=== PATIENT | female | born 1930 | race Caucasian/White ===

== ENCOUNTER 2016-10-27 17:10 | Inpatient (IN) | payer OTHER, MEDICAID, MEDICARE ==
[~2016-10-27] VITALS: Ht 170.2 cm; Wt 75.0 kg
[~2016-10-27 17:10] MED LIST: BIOT5000 PO; CALTTAB PO; CARV12.5 PO; CITA20 PO; CRUTCHES AXILLARY; DILT90TA PO; GABA300C3 PO; HYDR-2768 PO; MAGN500T4 PO; PERC5TAB12 PO; POTA99TA12 PO; RIVA20 PO; TAB-TAB PO; ULTR50TA PO; VITA20002 PO; VITA20004 PO; WAL-10TA2 PO
[2016-10-27 17:12] VITALS: BP 174/72; PULSE 77; RESP 18; TEMP 97.3; O2SAT 98
--- NOTE | 2016-10-27 22:34 | PD ---
HPI Chief Complaint: Hip Injury Time Seen by Provider: 22:21 Travel History International Travel<30 days: No Contact w/Intl Traveler<30days: No Traveled to known affect area: No History of Present Illness HPI 86yo F with PMH of HTN, osteoarthritis presents to the ED with c/o left hip fracture. Pt had seen her orthopedic surgeon Dr. Yee today and had a xray left hip that showed a fracture through femoral neck with superior displacement of proximal femur. As per pt, she was instructed to come to the ED. Pt has had left hip removal of hardware by Dr. Yee on 03/22/17 and has been having pain in left hip. Denies any fever, chest pain, sob, n/v, abdominal pain, focal weakness or numbness. PFSH Past Medical History Arthritis: Yes Asthma: No Atrial Fibrillation: Yes (AFLUTTER) Anxiety: Yes Depression: Yes Heart Rhythm Problems: Yes (A-FIB/rvr/flutter ) Cancer: No Cardiac Catheterization: Yes (x2 ablation) Cardiovascular Problems: Yes High Cholesterol: Yes Chest Pain: No Congestive Heart Failure: No COPD: No Diabetes: Yes (RESOLVED WITH WT LOSS) Patient Takes Glucophage: No Diminished Hearing: No Endocrine: Yes Gastrointestinal Disorders: Yes (IBS) Genitourinary: No Hepatitis: No Hiatal Hernia: No Hypertension: Yes Immune Disorder: No Kidney Stones: No Musculoskeletal: Yes (ARTHRITIS, OSTEOPOROSIS) Neurologic: No Psychiatric: No Reproductive: No Respiratory: No Sleep Apnea: No Thyroid Disease: No Tetanus Vaccination: Unknown Influenza Vaccination: Yes ?: Not Past Surgical History Abdominal Surgery: Yes (CHOLECYSECTOMY, APPENDECTOMY) AICD: No Appendectomy: Yes Arteriovenous Shunt: No Body Medical Devices: LEFT HIP HARDWARE Cardiac Surgery: No Cholecystectomy: Yes Ear Surgery: No Endocrine Surgery: No Eye Surgery: Yes (RIGHT CATARACT EXTRACT.) Genitourinary Surgery: No Gynecologic Surgery: Yes (TAHBSO) Hysterectomy: Yes Insulin Pump: No Joint Replacement: No Oral Surgery: Yes (DENTAL EXTRACTIONS) Pacemaker: No Thoracic Surgery: No Other Surgery: Yes (appendectomy, hysterctomy,gallbladder,cataract r, carpal tunnel,ablation, ) Social History Alcohol Use: Yes (OCCASIONAL) Tobacco Use: No (QUIT 37 YRS) Substance Use: No Allergies-Medications (Allergen,Severity, Reaction): Coded Allergies: No Known Allergies (Unverified , 10/27/16) Reported Meds & Prescriptions Reported Meds & Active Scripts Active Zofran (Ondansetron HCl) 4 Mg Tab 4 Mg PO Q12HR PRN Percocet (Oxycodone-Acetaminophen) 5-325 mg Tab 1 Tab PO Q4H PRN Reported B-12 (Cyanocobalamin) 2,000 Mcg Tab 2,000 Mcg PO DAILY Celexa (Citalopram Hydrobromide) 20 Mg Tab 20 Mg PO HS Gabapentin 300 Mg Cap 300 Mg PO BID Hydrochlorothiazide 25 Mg Tab 25 Mg PO DAILY Magnesium 250 Mg Tab 250 Mg PO DAILY Centrum Silver Adult 50+ (Multiple Vitamins W/ Minerals) 1 Tab Tab 1 Tab PO DAILY Percocet (Oxycodone-Acetaminophen) 7.5-325 mg Tab 1 Tab PO BID PRN Aspirin EC (Aspirin) 325 Mg Tabdr 325 Mg PO DAILY D 2000 (Cholecalciferol) 2,000 Unit Tab 2,000 Units PO DAILY Carvedilol 12.5 Mg Tab 12.5 Mg PO BID Caltrate 600+D (Calcium Carbonate-Cholecalciferol) 600-800 Mg-Unit Tab 1 Tab PO DAILY Biotin 5,000 Mcg Subl 5,000 Mcg PO DAILY Review of Systems Except as stated in HPI: all other systems reviewed are Neg Physical Exam Narrative GENERAL: 86yo F in mild distress. SKIN: Focused skin assessment warm/dry. HEAD: Atraumatic. Normocephalic. CARDIOVASCULAR: Regular rate and rhythm. No murmur appreciated. RESPIRATORY: No accessory muscle use. Clear to auscultation. Breath sounds equal bilaterally. GASTROINTESTINAL: Abdomen soft, non-tender, nondistended. No rebound tenderness or guarding. MUSCULOSKELETAL: LLE: +Surgical scar in left hip. +TTP proximal femur. No erythema or ecchymoses. Sensation intact. Distal pulses intact. NEUROLOGICAL: Awake and alert. No obvious cranial nerve deficits. Motor grossly within normal limits. Normal speech. PSYCHIATRIC: Appropriate mood and affect; insight and judgment normal. Data Data Last Documented VS Vital Signs Date Time Temp Pulse Resp B/P Pulse Ox O2 Delivery O2 Flow Rate FiO2 10/28/16 00:02 83 16 145/65 96 Room Air 10/27/16 17:12 97.3 Orders Complete Blood Count With Diff (10/27/16 22:33) Basic Metabolic Panel (Bmp) (10/27/16 22:33) Prothrombin Time / Inr (Pt) (10/27/16 22:33) Act Partial Throm Time (Ptt) (10/27/16 22:33) Type And Screen (10/27/16 22:33) Chest, Single Ap (10/27/16 ) Electrocardiogram (10/27/16 ) Morphine Inj (Morphine Inj) (10/27/16 23:00) Ondansetron Inj (Zofran Inj) (10/27/16 23:00) Consult Orthopedic (10/27/16 ) Carvedilol (Coreg) (10/27/16 23:15) Admit Order (Ed Use Only) (10/28/16 00:32) Labs Laboratory Tests Test 10/27/16 22:25 White Blood Count 7.8 TH/MM3 Red Blood Count 4.77 MIL/MM3 Hemoglobin 13.9 GM/DL Hematocrit 41.1 % Mean Corpuscular Volume 86.2 FL Mean Corpuscular Hemoglobin 29.2 PG Mean Corpuscular Hemoglobin 33.9 % Concent Red Cell Distribution Width 14.2 % Platelet Count 232 TH/MM3 Mean Platelet Volume 8.7 FL Neutrophils (%) (Auto) 61.3 % Lymphocytes (%) (Auto) 22.8 % Monocytes (%) (Auto) 12.9 % Eosinophils (%) (Auto) 2.3 % Basophils (%) (Auto) 0.7 % Neutrophils # (Auto) 4.8 TH/MM3 Lymphocytes # (Auto) 1.8 TH/MM3 Monocytes # (Auto) 1.0 TH/MM3 Eosinophils # (Auto) 0.2 TH/MM3 Basophils # (Auto) 0.1 TH/MM3 CBC Comment DIFF FINAL Differential Comment Prothrombin Time 9.9 SEC Prothromb Time International 0.9 RATIO Ratio Activated Partial 25.7 SEC Thromboplast Time Sodium Level 137 MEQ/L Potassium Level 3.7 MEQ/L Chloride Level 99 MEQ/L Carbon Dioxide Level 33.9 MEQ/L Anion Gap 4 MEQ/L Blood Urea Nitrogen 18 MG/DL Creatinine 0.72 MG/DL Estimat Glomerular Filtration 77 ML/MIN Rate Random Glucose 91 MG/DL Calcium Level 9.5 MG/DL Blood Type O POSITIVE Antibody Screen NEGATIVE MDM Medical Decision Making Medical Screen Exam Complete: Yes Emergency Medical Condition: Yes Interpretation(s) EKG: NSR 79bpm. Normal axis. 1st degree AV block. No ST segment elevation or depression. Q wave V2. Differential Diagnosis Left hip fracture Narrative Course 86yo F with left hip fracture. She had xray of left hip at [facility] today and had CD. I reviewed the image online. Discussed with orthopedic surgeon aviation technician aircraft Dr. Dupont who recommended admission to medicine and consult Dr. Yee. Labs reviewed, no leukocytosis. Normal coags. CXR showed minimal left basilar streakiness consistent with atelectasis or mild infiltrate. Pt has no symptoms and CXR was ordered for preop purposes. Pt given morphine and zofran. Pt also given her night dose of carvedilol. Discussed with Dr. Leon and accepted to his service. Diagnosis Primary Impression: Hip fracture, left Qualified Code: S72.002A - Hip fracture, left, closed, initial encounter Admitting Information Admitting Physician Requests: Admit Scripts Ondansetron (Zofran)4 Mg Tab4 Mg PO Q12HR PRN (NAUSEA OR VOMITING) #20 TAB Ref 0 Prov:oJhnny Yee Jr., MD 10/28/16 Oxycodone-Acetaminophen (Percocet)5-325 mg Tab1 Tab PO Q4H PRN (PAIN) #90 TAB Ref 0 Prov:Johnny Yee Jr., MD 10/28/16 Rika Martinez DO Oct 27, 2016 22:34
[2016-10-27] MEDS ORDERED: ASPI325T33 PO (22:45)
[2016-10-27] MEDS ORDERED: CHOL1TAB35 PO (22:45)
[2016-10-27] MEDS ORDERED: GABA300C5 PO (22:45)
[2016-10-27] MEDS ORDERED: CALTTAB PO (22:45)
[2016-10-27] MEDS ORDERED: MAGN250T2 PO (22:45)
[2016-10-27] MEDS ORDERED: PERC7.5T13 PO (22:45)
[2016-10-27] MEDS ORDERED: HYDR25TA5 PO (22:45)
[2016-10-27] MEDS ORDERED: BIOT1SUB PO (22:45)
[2016-10-27] MEDS ORDERED: CARV12.52 PO (22:45)
[2016-10-27] MEDS ORDERED: MULT1TAB PO (22:45)
[2016-10-27] MEDS ORDERED: B-122000 PO (22:47)
[2016-10-27] MEDS ORDERED: CELE20TA PO (22:47)
[2016-10-27 22:50] LABS: AUTOMATED NEUTROPHIL # 4.8 TH/MM3 (1.8-7.7); BASOPHIL # 0.1 TH/MM3 (0-0.2); BASOPHIL % 0.7 % (0.0-2.0); EOSINOPHIL # 0.2 TH/MM3 (0-0.4); EOSINOPHIL % 2.3 % (0.0-4.0); HEMATOCRIT 41.1 % (35.0-46.0); HEMO FLAGS DIFF FINAL; LYMPH % 22.8 % (9.0-44.0); LYMPHOCYTE # 1.8 TH/MM3 (1.0-4.8); MEAN CELL VOLUME 86.2 FL (80.0-100.0); MEAN CORPUSCULAR HEMOGLOBIN 29.2 PG (27.0-34.0); MEAN CORPUSCULAR HGB CONC 33.9 % (32.0-36.0); MONO % 12.9 % (0.0-8.0); NEUT % 61.3 % (16.0-70.0); PLATELET COUNT 232 TH/MM3 (150-450); RED BLOOD COUNT 4.77 MIL/MM3 (4.00-5.30); RED CELL DISTRIBUTION WIDTH 14.2 % (11.6-17.2); WHITE BLOOD COUNT 7.8 TH/MM3 (4.0-11.0)
[2016-10-27] MEDS ORDERED: ONDANSETRON HCL 4 MG/2 ML VIAL IV PUSH ONE (23:00)
[2016-10-27] MEDS ORDERED: MORPHINE SULFATE 4 MG/ML INJ IV PUSH ONE (23:00)
[2016-10-27 23:03] VITALS: BP 236/100; PULSE 80; RESP 18; O2SAT 98
--- NOTE | 2016-10-27 23:04 | RADRPT ---
EXAM DATE/TIME: 10/27/2016 22:44 [facility] COMPARISON: CHEST SINGLE AP, November 09, 2015, 22:25. INDICATIONS : Evaluate for pneumonia, pneumothorax and communicable disease. Pre op for hip surgery. MEDICAL HISTORY : None. SURGICAL HISTORY : Ablation, hip fracture ENCOUNTER: Initial ACUITY: 1 day PAIN SCORE: 0/10 LOCATION: Bilateral chest FINDINGS: Minimal left basilar patchiness is noted consistent with probable atelectasis and/or mild infiltrate. The heart is stable. The pulmonary vascular pattern is normal. Degenerative changes are noted thr oughout the thoracic spine. CONCLUSION: 1. Minimal left basilar streakiness consistent with atelectasis and/or mild infiltrate. Clinical co rrelation is recommended. 2. Degenerative changes throughout the thoracic spine. Taiwo Brown MD on October 27, 2016 at 22:59 Board Certified Radiologist. This report was verified electronically.
[2016-10-27 23:05] LABS: APTT (PATIENT) 25.7 SEC (24.3-30.1); INTERNATIONAL NORMALIZED RATIO 0.9 RATIO; PROTHROMBIN TIME - PATIENT 9.9 SEC (9.8-11.6)
[2016-10-27] MEDS ORDERED: CARVEDILOL 12.5 MG TAB PO ONE (23:15)
[2016-10-27 23:18] LABS: BICARBONATE 33.9 MEQ/L (21.0-32.0); POTASSIUM 3.7 MEQ/L (3.5-5.1)
[2016-10-28] VITALS (8 sets, daily range): BP systolic 112–155; BP diastolic 56–70; PULSE 74–86; RESP 16–20; TEMP 97.5–98.2; O2SAT 94–97
[2016-10-28] MEDS ORDERED: ONDANSETRON HCL 4 MG/2 ML VIAL IVP PRN ×2 (00:45→15:15)
[2016-10-28] MEDS ORDERED: ACETAMINOPHEN/HYDROcodone 325 MG/7.5 MG TAB PO PRN (00:45)
[2016-10-28] MEDS ORDERED: ACETAMINOPHEN/HYDROcodone 325 MG/5 MG TAB PO PRN (00:45)
[2016-10-28] MEDS ORDERED: ACETAMINOPHEN 325 MG TAB PO PRN (00:45)
[2016-10-28] MEDS ORDERED: BISACODYL 10 MG SUPP RECTAL PRN (00:45)
[2016-10-28] MEDS ORDERED: MORPHINE SULFATE 4 MG/ML INJ IV PRN (00:45)
[2016-10-28] MEDS ORDERED: NALOXONE HCL 0.4 MG/ML AMP IV PRN (00:45)
[2016-10-28] MEDS ORDERED: SODIUM CHLORIDE 0.9% FLUSH 10 ML FLUSH IV FLUSH PRN ×2 (00:45→15:15)
[2016-10-28] MEDS: SODIUM CHLOR 0.45% 1000 ML INJ 1,000 ML IV SCH ×2 (02:11→20:34)
--- NOTE | 2016-10-28 05:24 | HHI.HP ---
[facility] Primary Care Physician Non-Staff Admission Diagnosis Left hip fracture Diagnoses: Chief Complaint: left hip pain Travel History International Travel<30 Days: No Contact w/Intl Traveler <30 Da: No Traveled to Known Affected Are: No History of Present Illness 86 y/o female with a history of HTN and neuropathy presented to the ED with worsening left hip pain. Patient states she suffered a left hip fracture in October 2015 and underwent repair, and then in Mar 2016 the hardware was removed because the pins were sticking out. The increased pain began in September and since Tuesday the pain has been worsening and is sharp 8/10 in the left hip and is worse with movement. Patient was seen at her orthopedic surgeon Dr. Yee today and had a xray left hip that showed a fracture through femoral neck with superior displacement of proximal femur. She was then instructed to come to the ED. She denies any chest pain, fever, chills, sob, dysuria or nausea. Review of Systems Constitutional: DENIES: Fever, Chills Ears, nose, mouth, throat: DENIES: Throat pain, Sinus Pain Respiratory: DENIES: Cough, Sputum production, Shortness of breath Cardiovascular: DENIES: Chest pain, Lower Extremity Edema, Orthopnea Gastrointestinal: DENIES: Abdominal pain, Nausea, Vomiting Genitourinary: DENIES: Hematuria, Dysuria Musculoskeletal: COMPLAINS OF: Joint pain, DENIES: Back pain, Neck pain Integumentary: DENIES: Rash Hematologic/lymphatic: DENIES: Lymphadenopathy Immunologic/allergic: DENIES: Urticaria Neurologic: DENIES: Headache Past Family Social History Past Medical History HTN Neuropathy Past Surgical History Left hip repair-October 2015 Removal of hip hardware Mar 2016 Hysterectomy Appendectomy Cholecystectomy Ablations x 2 Reported Medications Reported Meds & Active Scripts Active Reported B-12 (Cyanocobalamin) 2,000 Mcg Tab 2,000 Mcg PO DAILY Celexa (Citalopram Hydrobromide) 20 Mg Tab 20 Mg PO HS Gabapentin 300 Mg Cap 300 Mg PO BID Hydrochlorothiazide 25 Mg Tab 25 Mg PO DAILY Magnesium 250 Mg Tab 250 Mg PO DAILY Centrum Silver Adult 50+ (Multiple Vitamins W/ Minerals) 1 Tab Tab 1 Tab PO DAILY Percocet (Oxycodone-Acetaminophen) 7.5-325 mg Tab 1 Tab PO BID PRN Aspirin EC (Aspirin) 325 Mg Tabdr 325 Mg PO DAILY D 2000 (Cholecalciferol) 2,000 Unit Tab 2,000 Units PO DAILY Carvedilol 12.5 Mg Tab 12.5 Mg PO BID Caltrate 600+D (Calcium Carbonate-Cholecalciferol) 600-800 Mg-Unit Tab 1 Tab PO DAILY Biotin 5,000 Mcg Subl 5,000 Mcg PO DAILY Allergies: Coded Allergies: No Known Allergies (Unverified , 10/27/16) Active Ordered Medications Current Medications Medications (Trade) Dose Ordered Sig/Kalia Route Start Time Stop Time Status Last Admin (08/02 NS 1000 ml Inj) 1,000 ml @ 75 mls/hr [id number] IV 10/28/16 00:45 10/28/16 02:11 (NS Flush) 2 ml UNSCH PRN IV FLUSH 10/28/16 00:45 (NS Flush) 2 ml BID IV FLUSH 10/28/16 09:00 (Zofran Inj) 4 mg Q6H PRN IVP 10/28/16 00:45 (Dulcolax Supp) 10 mg DAILY PRN RECTAL 10/28/16 00:45 (Milk Of Magnesia Liq) 30 ml Q12H PRN PO 10/28/16 00:45 (Senokot) 17.2 mg Q12H PRN PO 10/28/16 00:45 (Tylenol) 650 mg Q6H PRN PO 10/28/16 00:45 ([place] 5-325 Mg) 1 tab Q4H PRN PO 10/28/16 00:45 ([place] 7.5-325 Mg) 1 tab Q4H PRN PO 10/28/16 00:45 (Morphine Inj) 2 mg Q3H PRN IV 10/28/16 00:45 10/28/16 05:17 (Narcan Inj) 0.4 mg UNSCH PRN IV 10/28/16 00:45 (Coreg) 12.5 mg BID PO 10/28/16 09:00 (CeleXA) 20 mg HS PO 10/28/16 21:00 (Neurontin) 300 mg BID PO 10/28/16 09:00 (Vitamin D3) 2,000 units DAILY PO 10/28/16 09:00 Family History Patient denies any family cardiac history. Social History Tobacco use: Denies Alcohol use: Denies Physical Exam Vital Signs Vital Signs Date Time Temp Pulse Resp B/P Pulse Ox O2 Delivery O2 Flow Rate FiO2 10/28/16 04:43 74 16 123/60 97 Room Air 10/28/16 02:29 80 16 112/56 96 Room Air 10/28/16 00:02 83 16 145/65 96 Room Air 10/27/16 23:30 16 10/27/16 23:03 80 18 236/100 98 Room Air 10/27/16 22:22 71 18 96 Room Air 10/27/16 17:12 97.3 77 18 174/72 98 Room Air Physical Exam GENERAL: This is a well-nourished, well-developed patient, with moderate pain. SKIN: No rashes, ecchymoses or lesions. Cool and dry. HEAD: Atraumatic. Normocephalic. No temporal or scalp tenderness. EYES: Pupils equal round and reactive. Extraocular motions intact. No scleral icterus. No injection or drainage. ENT: Nose without bleeding, purulent drainage or septal hematoma. Throat without erythema, tonsillar hypertrophy or exudate. Uvula midline. NECK: Trachea midline. No JVD or lymphadenopathy. Supple, nontender, no meningeal signs. CARDIOVASCULAR: Regular rate and rhythm without murmurs, gallops, or rubs. RESPIRATORY: Clear to auscultation. Breath sounds equal bilaterally. No wheezes , rales, or rhonchi. GASTROINTESTINAL: Abdomen soft, non-tender, nondistended. No hepato-splenomegaly , or palpable masses. No guarding. MUSCULOSKELETAL: Extremities without clubbing, cyanosis, or edema. Left hip joint tenderness, effusion, or edema noted. No calf tenderness. NEUROLOGICAL: Awake and alert. Motor and sensory grossly within normal limits. Five out of 5 muscle strength in all muscle groups. Normal speech. Laboratory Laboratory Tests Test 10/27/16 22:25 White Blood Count 7.8 Red Blood Count 4.77 Hemoglobin 13.9 Hematocrit 41.1 Mean Corpuscular Volume 86.2 Mean Corpuscular Hemoglobin 29.2 Mean Corpuscular Hemoglobin 33.9 Concent Red Cell Distribution Width 14.2 Platelet Count 232 Mean Platelet Volume 8.7 Neutrophils (%) (Auto) 61.3 Lymphocytes (%) (Auto) 22.8 Monocytes (%) (Auto) 12.9 Eosinophils (%) (Auto) 2.3 Basophils (%) (Auto) 0.7 Neutrophils # (Auto) 4.8 Lymphocytes # (Auto) 1.8 Monocytes # (Auto) 1.0 Eosinophils # (Auto) 0.2 Basophils # (Auto) 0.1 CBC Comment DIFF FINAL Differential Comment Prothrombin Time 9.9 Prothromb Time International 0.9 Ratio Activated Partial 25.7 Thromboplast Time Sodium Level 137 Potassium Level 3.7 Chloride Level 99 Carbon Dioxide Level 33.9 Anion Gap 4 Blood Urea Nitrogen 18 Creatinine 0.72 Estimat Glomerular Filtration 77 Rate Random Glucose 91 Calcium Level 9.5 Blood Type O POSITIVE Antibody Screen NEGATIVE Result Diagram: 10/27/16222410/27/162224 Imaging Last Impressions Chest X-Ray 10/27/16 0000 Signed Impressions: Service Date/Time: Thursday, October 27, 2016 22:44 - CONCLUSION: 1. Minimal left basilar streakiness consistent with atelectasis and/or mild infiltrate. Clinical correlation is recommended. 2. Degenerative changes throughout the thoracic spine. Taiwo Brown MD Assessment and Plan Problem List: (1) Hip fracture, left ICD Code: S72.002A Status: Acute (2) Hypertension, benign ICD Code: I10 Status: Chronic Assessment and Plan 86 y/o female with a history of HTN and neuropathy presented to the ED with worsening left hip pain. Xray at Dr. Barrow office shows a fracture through femoral neck with superior displacement of proximal femur. Hip fracture, left -Consult orthopedic -Pain management with IV morphine and norco HTN, chronic -Cont home medications Coreg, -Monitor vitals DVT prophylaxis: SCDs, chemical prophylaxis determined after surgery Written by AIDEN Belle acting as scribe for Dr. Leon on 10/28/16 at 0520. All or portions of this note were transcribed by scribe [AIDEN Belle,]. I, Dr. Boyd Leon personally performed the history, physical exam, and medical decision making; and confirmed the accuracy of the information in the transcribed note. Authenticated by Dr. Boyd Leon on 10/29/16 at 13:09. Discussed Condition With Patient, RN and ER physician Physician Certification 2 Midnight Certification Type: Admission for Inpatient Services Order for Inpatient Services The services are ordered in accordance with Medicare regulations or non- Medicare payer requirements, as applicable. In the case of services not specified as inpatient-only, they are appropriately provided as inpatient services in accordance with the 2-midnight benchmark. Estimated LOS (days): 2 days is the estimated time the patient will need to remain in the hospital, assuming treatment plan goals are met and no additional complications. Post-Hospital Plan: Home Problem Qualifiers (1) Hip fracture, left: Qualified Code: S72.002A - Hip fracture, left, closed, initial encounter Ann Bush Oct 28, 2016 05:24 Boyd Leon MD Oct 29, 2016 13:09
[2016-10-28] MEDS: CHOLECALCIFEROL (VIT D3) 1000 UNIT TAB PO SCH (08:23)
[2016-10-28] MEDS: GABAPENTIN 300 MG CAP PO SCH ×2 (08:23→20:32)
[2016-10-28] MEDS: CARVEDILOL 12.5 MG TAB PO SCH ×2 (08:24→20:32)
--- NOTE | 2016-10-28 08:43 | HHI.PR ---
Subjective Remarks f/u for hip fracture. c/o of hip pain. patient stated she just got pain medication. otherwise she has no complaints. She denied any CP, SOB, palpitations, lightheadedness/dizziness even with exertion. She stated she did well under general anesthesia. Objective Vitals Vital Signs Date Time Temp Pulse Resp B/P Pulse Ox O2 Delivery O2 Flow Rate FiO2 10/28/16 08:35 97.5 83 20 148/66 94 10/28/16 07:37 86 10/28/16 05:32 98.2 79 20 155/70 97 10/28/16 04:43 74 16 123/60 97 Room Air 10/28/16 02:29 80 16 112/56 96 Room Air 10/28/16 00:02 83 16 145/65 96 Room Air 10/27/16 23:30 16 10/27/16 23:03 80 18 236/100 98 Room Air 10/27/16 22:22 71 18 96 Room Air 10/27/16 17:12 97.3 77 18 174/72 98 Room Air I/O 10/27/16 10/27/16 10/27/16 10/28/16 10/28/16 10/28/16 07:00 15:00 23:00 07:00 15:00 23:00 Output Total 400 ml Balance -400 ml Output Urine Total 400 ml # Voids 1 Result Diagram: 10/27/16222410/27/162224 Objective Remarks GENERAL: in NAD SKIN: Warm and dry. HEAD: Normocephalic. EYES: No scleral icterus. No injection or drainage. NECK: Supple, trachea midline. No JVD or lymphadenopathy. CARDIOVASCULAR: Regular rate and rhythm without murmurs, gallops, or rubs. RESPIRATORY: Breath sounds equal bilaterally. No accessory muscle use. GASTROINTESTINAL: Abdomen soft, non-tender, nondistended. Medications and IVs Current Medications Morphine Sulfate (Morphine Inj) 4 mg ONCE ONCE IV PUSH Last administered on 23:00; Start 10/27/16 at 23:00; Stop 10/27/16 at 23:01; Status DC Ondansetron HCl (Zofran Inj) 4 mg ONCE ONCE IV PUSH Last administered on 22:59; Start 10/27/16 at 23:00; Stop 10/27/16 at 23:01; Status DC Carvedilol 12.5 mg 12.5 mg ONCE ONCE PO Last administered on 10/27/16 23:20; Start 10/27/16 at 23:15; Stop 10/27/16 at 23:16; Status DC Sodium Chloride (1/2 NS 1000 ml Inj) 1,000 ml @ 75 mls/hr [id number] IV Last administered on 10/28/16 02:11; Start 10/28/16 at 00:45 Sodium Chloride (NS Flush) 2 ml UNSCH PRN IV FLUSH FLUSH AFTER USING IV ACCESS ; Start 10/28/16 at 00:45 Sodium Chloride (NS Flush) 2 ml BID IV FLUSH Last administered on 10/28/16 08: 23; Start 10/28/16 at 09:00 Ondansetron HCl (Zofran Inj) 4 mg Q6H PRN IVP NAUSEA OR VOMITING; Start at 00:45 Bisacodyl (Dulcolax Supp) 10 mg DAILY PRN RECTAL CONSTIPATION; Start 10/28/16 at 00:45 Magnesium Hydroxide (Milk Of Magnesia Liq) 30 ml Q12H PRN PO CONSTIPATION; Start 10/28/16 at 00:45 Sennosides (Senokot) 17.2 mg Q12H PRN PO CONSTIPATION; Start 10/28/16 at 00:45 Acetaminophen (Tylenol) 650 mg Q6H PRN PO PAIN SCALE 1 TO 2; Start 10/28/16 at 00:45 Acetaminophen/ Hydrocodone Bitart ([place] 5-325 Mg) 1 tab Q4H PRN PO PAIN SCALE 3 TO 5; Start 10/28/16 at 00:45 Acetaminophen/ Hydrocodone Bitart ([place] 7.5-325 Mg) 1 tab Q4H PRN PO PAIN SCALE 6 TO 10 Last administered on 10/28/16 08:24; Start 10/28/16 at 00:45 Morphine Sulfate (Morphine Inj) 2 mg Q3H PRN IV BREAKTHROUGH PAIN Last administered on 10/28/16 05:17; Start 10/28/16 at 00:45 Naloxone HCl (Narcan Inj) 0.4 mg UNSCH PRN IV SEE LABEL COMMENTS; Start at 00:45 Carvedilol (Coreg) 12.5 mg BID PO Last administered on 10/28/16 08:24; Start 10/28/16 at 09:00 Citalopram Hydrobromide (CeleXA) 20 mg HS PO ; Start 10/28/16 at 21:00 Gabapentin (Neurontin) 300 mg BID PO Last administered on 10/28/16 08:23; Start 10/28/16 at 09:00 Cholecalciferol (Vitamin D3) 2,000 units DAILY PO Last administered on 08:23; Start 10/28/16 at 09:00 A/P Problem List: (1) Hip fracture, left ICD Code: S72.002A Status: Acute (2) Hypertension, benign ICD Code: I10 Status: Chronic Assessment and Plan 86 y/o female with a history of HTN and neuropathy presented to the ED with worsening left hip pain. Xray at Dr. Barrow office shows a fracture through femoral neck with superior displacement of proximal femur. Hip fracture, left -patient scheduled for surgery today. -continue with pain management with IV morphine and norco. -patient low risk. She understands the risk and benefits of surgery and wants to proceed. HTN, chronic -Cont home medications Coreg, -Monitor vitals DVT prophylaxis: SCDs, chemical prophylaxis determined after surgery Discharge Planning once cleared by Ortho can be d/c to SNF. Rafaela Mckinnon MD Oct 28, 2016 08:43
[2016-10-28] MEDS ORDERED: SODIUM CHLORIDE 0.9% FLUSH 10 ML FLUSH IV FLUSH SCH (09:00)
--- NOTE | 2016-10-28 13:16 | EKG ---
Date Performed: 10/28/2016 Time Performed: 09:17:19 PTAGE: 86 years EKG: SUPRAVENTRICULAR RHYTHM ATYPICAL ECG INTERPRETATION BASED ON A DEFAULT AGE OF 40 YEARS NO PREVIOUS TRACING DOCTOR: Eder Foley Interpretating Date/Time 10/28/2016 13:14:33
--- NOTE | 2016-10-28 13:38 | EKG ---
Date Performed: 10/27/2016 Time Performed: 23:45:17 PTAGE: 86 years EKG: Sinus rhythm WITH FIRST DEGREE AV BLOCK ABNORMAL ECG PREVIOUS TRACING : 11/09/2015 21.00 Compared to prior tracing no significant change DOCTOR: Eder Foley Interpretating Date/Time 10/28/2016 13:35:25
[2016-10-28] MEDS ORDERED: ceFAZolin 2 GM PREMIX 50 ML ONE (14:20)
[2016-10-28] MEDS ORDERED: GENTAMICIN SULFATE 80 MG/2 ML VIAL ONE (14:20)
[2016-10-28] MEDS ORDERED: VANCOMYCIN HCL 1000 MG VIAL ONE (14:21)
[2016-10-28] MEDS ORDERED: ZOFR4TAB PO (15:03)
[2016-10-28] MEDS ORDERED: PERC5TAB12 PO (15:03)
--- NOTE | 2016-10-28 15:10 | HHI.FF ---
Face to Face Verification Diagnosis: (1) Hip fracture, left Physical Therapy Gait training Hip: Other (Posterior hip precautions. Knee immobilizer on at all times. Abduction pillow only when in bed.), Protocol: Left, Posterior hip precautions, Abduction pillow while in bed Canvas Knee Splint: At all times Left LE Weight Bearing: WB as tolerated Left LE Range of Motion: No ROM Nursing RN: 3 days/week x 2 weeks Nursing: Dressing changes, Other (change starting POD4 with primapore.) I have seen patient Medina Beltran on 10/28/16. My clinical findings support the need for the requested home health care services because: Ltd mobility - disease progression Deconditioned w/ increased weakness I certify that my clinical findings support that this patient is homebound because: Post-op weakness Unsteady gait/balance Johnny Yee Jr., MD Oct 28, 2016 15:10
[2016-10-28] MEDS ORDERED: MORPHINE SULFATE 8 MG/ML INJ IV PUSH PRN (15:15)
[2016-10-28] MEDS ORDERED: ZOLPIDEM TARTRATE 5 MG TAB PO PRN (15:15)
[2016-10-28] MEDS ORDERED: PROMETHAZINE HCL 25 MG TAB PO PRN (15:15)
[2016-10-28] MEDS ORDERED: oxyCODONE/ACETAMINOPHEN 5 MG/325 MG TAB PO PRN (15:15)
[2016-10-28] MEDS: KETOROLAC TROMETHAMINE 30 MG/ML (IVP) VIAL IVP SCH ×2 (16:00→22:00)
[2016-10-28 16:54] LABS: AUTOMATED NEUTROPHIL # 3.5 TH/MM3 (1.8-7.7); BASOPHIL % 0.5 % (0.0-2.0); EOSINOPHIL # 0.1 TH/MM3 (0-0.4); EOSINOPHIL % 1.9 % (0.0-4.0); HEMATOCRIT 32.3 % (35.0-46.0); HEMO FLAGS DIFF FINAL; LYMPH % 21.6 % (9.0-44.0); LYMPHOCYTE # 1.1 TH/MM3 (1.0-4.8); MEAN CELL VOLUME 85.2 FL (80.0-100.0); MEAN CORPUSCULAR HEMOGLOBIN 28.8 PG (27.0-34.0); MEAN CORPUSCULAR HGB CONC 33.9 % (32.0-36.0); MONO % 9.5 % (0.0-8.0); NEUT % 66.5 % (16.0-70.0); PLATELET COUNT 188 TH/MM3 (150-450); RED BLOOD COUNT 3.79 MIL/MM3 (4.00-5.30); RED CELL DISTRIBUTION WIDTH 14.1 % (11.6-17.2); WHITE BLOOD COUNT 5.2 TH/MM3 (4.0-11.0)
[2016-10-28 17:07] LABS: AUTOMATED NEUTROPHIL # 3.2 TH/MM3 (1.8-7.7); BASOPHIL % 0.6 % (0.0-2.0); EOSINOPHIL # 0.1 TH/MM3 (0-0.4); EOSINOPHIL % 1.2 % (0.0-4.0); HEMATOCRIT 28.9 % (35.0-46.0); HEMO FLAGS DIFF FINAL; LYMPH % 21.7 % (9.0-44.0); MEAN CELL VOLUME 85.9 FL (80.0-100.0); MEAN CORPUSCULAR HEMOGLOBIN 28.7 PG (27.0-34.0); MEAN CORPUSCULAR HGB CONC 33.4 % (32.0-36.0); NEUT % 66.5 % (16.0-70.0); PLATELET COUNT 147 TH/MM3 (150-450); RED BLOOD COUNT 3.37 MIL/MM3 (4.00-5.30); RED CELL DISTRIBUTION WIDTH 13.8 % (11.6-17.2); WHITE BLOOD COUNT 4.8 TH/MM3 (4.0-11.0)
[2016-10-28] MEDS ORDERED: Post-op Orders (for Pharmacy) MISC XX ONE (17:45)
[2016-10-28] MEDS ORDERED: fentaNYL CITRATE 250 MCG/5 ML AMP ONE (17:48)
[2016-10-28] MEDS ORDERED: *morphine SULFATE 8 MG/ML PERIprocedure ONLY ONE ×2 (17:58→18:22)
--- NOTE | 2016-10-28 18:43 | PD.OP ---
cc: Johnny Yee Jr., MD Operative Report Date of Surgery: Oct 28, 2016 Preoperative Diagnosis: left femoral head avascular necrosis left femoral neck fracture Postoperative Diagnosis: same Procedure: Left hip hemiarthroplasty bipolar Anesthesia: Gen. Surgeon: Johnny Yee Clinical Psychology Professor(s): Staff Resident Surgeon: None Operation and Findings: DRAIN: None DETAILS OF PROCEDURE This patient was brought into the operating room and placed on the OR table. The patient was given anesthesia. The patient received IV antibiotics. The patient was then placed in lateral decubitus position. The left hip and leg were prepped with alcohol, followed by Hibiclens and draped in a usual sterile fashion. Clean air was used for this procedure. Time out procedure was performed. The procedure began with a 5 inch incision over the posterolateral hip. The subcutaneous tissue was dissected with the Bovie. The iliotibial band were split in line with fibers. The Charnley retractor was placed. The piriformis and external rotators were released from the femur and tagged with a #1 Vicryl suture. The capsule is now incised and tagged with #1 Vicryl. The femoral neck fracture was now visualized. A corkscrew was now used to remove the femoral head. The femoral head was sized and measured. Soft tissue was now protected. The hip skid was placed underneath the femoral neck. An oscillating saw was used to make a femoral neck cut. At this point attention was turned to preparation of the proximal femur. A box osteotome was used to remove the lateral cortex of the femoral neck. The T- handle reamer was used to open the femoral canal. Next, the canal was broached. A lateralizing reamer was used to help lateralize the prosthesis. At this point a trial head and neck were placed. The hip was reduced. The patient was found to have excellent stability with good range of motion. Trial components were removed. Soft tissue and bone were thoroughly irrigated. A Corail stem was now opened. The stem was now impacted into the proximal femur. Care was taken to keep appropriate anteversion. The head and neck were now impacted onto the stem. The hip was again reduced. The hip was found to have good range of motion and good stability. Leg lengths were clinically equal. The wound was thoroughly irrigated. The capsule, piriformis and iliotibial band were closed with #1 Vicryl. Subcutaneous tissue was closed with 3-0 Vicryl. The skin was closed with mendy. A sterile dressing was applied with Primapore. The patient was placed into a knee immobilizer. The patient was awakened and transferred to the recovery room in stable condition. Needle and sponge counts were correct. IMPLANTS USED DePuy Corail size 8 stem with size 47, +1.5 bipolar head POSTP-OP PLAN OF ACTIVITY Antibiotics: Ancef, vancomycin Antiocoagulation: Lovenox Weight bearing status: WBAT Dressing: Change daily, by RN starting postop day 2 Future procedure planned: none Dispo: expected discharge 2. Likely home w Johnny Alejandro Jr., MD Oct 28, 2016 18:42
--- NOTE | 2016-10-28 19:06 | RADRPT ---
EXAM DATE/TIME: 10/28/2016 18:20 [facility] COMPARISON: HIP LEFT (AP&LAT 2/3VWS) W AP PELVIS, November 09, 2015, 21:14. INDICATIONS : Post left hip reduction. Left hip fracture. MEDICAL HISTORY : None. SURGICAL HISTORY : None. ENCOUNTER: Initial ACUITY: 1 day PAIN SCORE: 5/10 LOCATION: Left hip. FINDINGS: The patient is status post left hip replacement with prosthesis in good position. Mild degenerative changes are noted involving the right hip joint. Degenerative changes are also noted involving the v isualized lower lumbar spine. CONCLUSION: 1. Status post left hip replacement with prosthesis in good position. 2. Degenerative changes involving the lower lumbar spine and right hip joint. Taiwo Brown MD on October 28, 2016 at 19:04 Board Certified Radiologist. This report was verified electronically.
[2016-10-28] MEDS: CITALOPRAM HYDROBROMIDE 20 MG TAB PO SCH (20:32)
[2016-10-28] MEDS: SENNOSIDES 8.6 MG TAB PO PRN (20:32)
[2016-10-28] MEDS: MAGNESIUM HYDROXIDE SUSP 30 ML CUP PO PRN (20:33)
[2016-10-28] MEDS: SODIUM CHLORIDE 0.9% FLUSH 10 ML FLUSH IV FLUSH SCH (21:00)
[2016-10-29] VITALS (8 sets, daily range): BP systolic 110–185; BP diastolic 51–72; PULSE 68–78; RESP 16–20; TEMP 95.8–97; O2SAT 92–100
[2016-10-29] MEDS: VANCOMYCIN INJ 1,000 MG in SODIUM CHLOR 0.9% 250 ML INJ 250 ML IV SCH ×2 (01:20→13:14)
[2016-10-29] MEDS: SODIUM CHLOR 0.45% 1000 ML INJ 1,000 ML IV SCH ×2 (03:25→16:45)
[2016-10-29] MEDS: KETOROLAC TROMETHAMINE 30 MG/ML (IVP) VIAL IVP SCH ×4 (05:28→21:23)
[2016-10-29] MEDS: ENOXAPARIN SODIUM 30 MG/0.3 ML SYRINGE SQ SCH ×2 (05:28→16:27)
[2016-10-29 06:45] LABS: AUTOMATED NEUTROPHIL # 9.2 TH/MM3 (1.8-7.7); BASOPHIL % 0.2 % (0.0-2.0); HEMATOCRIT 29.3 % (35.0-46.0); HEMO FLAGS DIFF FINAL; LYMPH % 4.5 % (9.0-44.0); LYMPHOCYTE # 0.5 TH/MM3 (1.0-4.8); MEAN CELL VOLUME 85.1 FL (80.0-100.0); MEAN CORPUSCULAR HEMOGLOBIN 30.1 PG (27.0-34.0); MEAN CORPUSCULAR HGB CONC 35.3 % (32.0-36.0); MONO % 6.6 % (0.0-8.0); NEUT % 88.7 % (16.0-70.0); PLATELET COUNT 172 TH/MM3 (150-450); RED BLOOD COUNT 3.44 MIL/MM3 (4.00-5.30); WHITE BLOOD COUNT 10.4 TH/MM3 (4.0-11.0)
[2016-10-29 07:44] LABS: ALKALINE PHOSPHATASE 53 U/L (45-117); ALT (GPT) 30 U/L (10-53); ANION GAP 7 MEQ/L (5-15); AST (GOT) 34 U/L (15-37); BICARBONATE 28.9 MEQ/L (21.0-32.0); BLOOD UREA NITROGEN 12 MG/DL (7-18); CHLORIDE 101 MEQ/L (98-107); GLOMERULAR FILTRATION RATE 103 ML/MIN (>89); SODIUM (NA) 137 MEQ/L (136-145); TOTAL BILIRUBIN ADULT 0.5 MG/DL (0.2-1.0)
[2016-10-29] MEDS: SODIUM CHLORIDE 0.9% FLUSH 10 ML FLUSH IV FLUSH SCH ×2 (09:00→21:23)
[2016-10-29] MEDS: GABAPENTIN 300 MG CAP PO SCH ×2 (09:01→21:23)
[2016-10-29] MEDS: CARVEDILOL 12.5 MG TAB PO SCH ×2 (09:01→21:23)
[2016-10-29] MEDS: oxyCODONE/ACETAMINOPHEN 5 MG/325 MG TAB PO PRN ×2 (09:02→14:19)
[2016-10-29] MEDS: CHOLECALCIFEROL (VIT D3) 1000 UNIT TAB PO SCH (09:02)
--- NOTE | 2016-10-29 11:33 | PD.ORT.PN ---
Subjective Subjective Remarks doing well. No pain. Very comfortable. Objective Vitals Vital Signs Date Time Temp Pulse Resp B/P Pulse Ox O2 Delivery O2 Flow Rate FiO2 10/29/16 08:00 95.8 78 18 157/70 100 10/29/16 07:50 97 Nasal Cannula 2.00 10/29/16 06:50 Nasal Cannula 2.00 10/29/16 04:00 96.6 77 16 143/67 99 10/29/16 00:00 96.6 76 16 120/60 97 10/28/16 21:10 97 Nasal Cannula 2.00 10/28/16 18:57 Nasal Cannula 2.00 10/28/16 18:30 87 16 163/76 99 Nasal Cannula 3 10/28/16 18:15 67 15 165/71 99 Nasal Cannula 3 10/28/16 18:00 103 14 159/66 99 Nasal Cannula 3 10/28/16 17:44 97.7 107 12 161/57 98 Nasal Cannula 3 10/28/16 12:00 97.5 74 17 121/58 97 I/O 10/28/16 10/28/16 10/28/16 10/29/16 10/29/16 10/29/16 07:00 15:00 23:00 07:00 15:00 23:00 Intake Total 3480 ml 888 ml Output Total 400 ml 1900 ml 200 ml Balance -400 ml 1580 ml 688 ml Intake Oral 480 ml 240 ml IV Total 648 ml Other 3000 ml Output Urine Total 400 ml 900 ml 200 ml Estimated Blood Loss 1000 ml # Voids 1 # Bowel Movements 0 Result Diagram: 10/29/16 0543 10/29/16 0543 Objective Remarks Alert awake and oriented -3. No acute distress. Pulmonary: Normal respiratory effort. LEFT lower extremity: abduction pillow and knee immobilizer in place. Neurovascularly intact, +EHL/FHL, dressing clean, dry and intact. + PT/DP pulses. Supple compartments. Negative Homans sign. Assessment & Plan Assessment and Plan POD # 1- LEFT hip bipolar hemiarthroplasty Doing well, expected postop pain, no complaints. DVT prophylaxis, Lovenox Weightbearing status: WBAT Dressing change: Change daily, by RN starting postop day 2. posterior hip precautions. Knee immobilizer on at all times except when walking. Abduction pillow while in bed. PT/OT: Encourage at least 3 times a day OOB. Dispo:patient expressed interest in going to inpatient rehabilitation Follow-up: 2 weeks, Dr. Yee, [facility] Johnny Berkowitz Jr., MD Oct 29, 2016 11:33
--- NOTE | 2016-10-29 14:44 | HHI.PR ---
Subjective Remarks f/u for hip fracture. patient stated she is doing well. She was walking earlier. pain is controlled. no other events. Objective Vitals Vital Signs Date Time Temp Pulse Resp B/P Pulse Ox O2 Delivery O2 Flow Rate FiO2 10/29/16 12:00 97.0 68 16 110/51 98 10/29/16 08:00 95.8 78 18 157/70 100 10/29/16 07:50 97 Nasal Cannula 2.00 10/29/16 06:50 Nasal Cannula 2.00 10/29/16 04:00 96.6 77 16 143/67 99 10/29/16 00:00 96.6 76 16 120/60 97 10/28/16 21:10 97 Nasal Cannula 2.00 10/28/16 18:57 Nasal Cannula 2.00 10/28/16 18:30 87 16 163/76 99 Nasal Cannula 3 10/28/16 18:15 67 15 165/71 99 Nasal Cannula 3 10/28/16 18:00 103 14 159/66 99 Nasal Cannula 3 10/28/16 17:44 97.7 107 12 161/57 98 Nasal Cannula 3 I/O 10/28/16 10/28/16 10/28/16 10/29/16 10/29/16 10/29/16 07:00 15:00 23:00 07:00 15:00 23:00 Intake Total 3480 ml 888 ml Output Total 400 ml 1900 ml 200 ml Balance -400 ml 1580 ml 688 ml Intake Oral 480 ml 240 ml IV Total 648 ml Other 3000 ml Output Urine Total 400 ml 900 ml 200 ml Estimated Blood Loss 1000 ml # Voids 1 # Bowel Movements 0 Result Diagram: 10/29/16 0543 10/29/16 0543 Objective Remarks GENERAL: in NAD SKIN: Warm and dry. HEAD: Normocephalic. EYES: No scleral icterus. No injection or drainage. NECK: Supple, trachea midline. No JVD or lymphadenopathy. CARDIOVASCULAR: Regular rate and rhythm without murmurs, gallops, or rubs. RESPIRATORY: Breath sounds equal bilaterally. No accessory muscle use. GASTROINTESTINAL: Abdomen soft, non-tender, nondistended. Medications and IVs Zofran (Ondansetron HCl) 4 Mg Tab 4 Mg PO Q12HR PRN Percocet (Oxycodone-Acetaminophen) 5-325 mg Tab 1 Tab PO Q4H PRN B-12 (Cyanocobalamin) 2,000 Mcg Tab 2,000 Mcg PO DAILY Celexa (Citalopram Hydrobromide) 20 Mg Tab 20 Mg PO HS Gabapentin 300 Mg Cap 300 Mg PO BID Hydrochlorothiazide 25 Mg Tab 25 Mg PO DAILY Magnesium 250 Mg Tab 250 Mg PO DAILY Centrum Silver Adult 50+ (Multiple Vitamins W/ Minerals) 1 Tab Tab 1 Tab PO DAILY Percocet (Oxycodone-Acetaminophen) 7.5-325 mg Tab 1 Tab PO BID PRN Aspirin EC (Aspirin) 325 Mg Tabdr 325 Mg PO DAILY D 2000 (Cholecalciferol) 2,000 Unit Tab 2,000 Units PO DAILY Carvedilol 12.5 Mg Tab 12.5 Mg PO BID Caltrate 600+D (Calcium Carbonate-Cholecalciferol) 600-800 Mg-Unit Tab 1 Tab PO DAILY Biotin 5,000 Mcg Subl 5,000 Mcg PO DAILY A/P Problem List: (1) Hip fracture, left ICD Code: S72.002A Status: Acute (2) Hypertension, benign ICD Code: I10 Status: Chronic Assessment and Plan 86 y/o female with a history of HTN and neuropathy presented to the ED with worsening left hip pain. Xray at Dr. Barrow office shows a fracture through femoral neck with superior displacement of proximal femur. Hip fracture, left -s/p LEFT hip bipolar hemiarthroplasty on 10/29 -per ortho, weightbearing status: WBAT, dressing change: Change daily, by RN starting postop day 2. posterior hip precautions. Knee immobilizer on at all times except when walking. Abduction pillow while in bed. Encourage at least 3 times a day OOB. -Follow-up: 2 weeks, [facility] HTN, chronic -Cont home medications Coreg, -Monitor vitals DVT prophylaxis: lovenox Discharge Planning patient cleared to be d/c to SNF tomorrow. d/w case management. Problem Qualifiers (1) Hip fracture, left: Qualified Code: S72.002A - Hip fracture, left, closed, initial encounter Rafaela Mckinnon MD Oct 29, 2016 14:44
[2016-10-29] MEDS: CITALOPRAM HYDROBROMIDE 20 MG TAB PO SCH (21:23)
[2016-10-29] MEDS: DOCUSATE SODIUM 100 MG CAP PO SCH (21:23)
[2016-10-29] MEDS: SENNOSIDES 8.6 MG TAB PO PRN (21:23)
[2016-10-30] VITALS: BP 169/74; PULSE 76; RESP 20; TEMP 97.7; O2SAT 97
[2016-10-30] MEDS: SODIUM CHLOR 0.45% 1000 ML INJ 1,000 ML IV SCH (03:32)
[2016-10-30] MEDS: KETOROLAC TROMETHAMINE 30 MG/ML (IVP) VIAL IVP SCH ×2 (03:32→09:39)
[2016-10-30] MEDS: ENOXAPARIN SODIUM 30 MG/0.3 ML SYRINGE SQ SCH ×2 (03:32→16:49)
[2016-10-30 04:00] VITALS: BP 145/64; PULSE 76; RESP 22; TEMP 98.5; O2SAT 95
[2016-10-30 08:00] VITALS: BP 126/60; PULSE 72; RESP 16; TEMP 96.3; O2SAT 97
--- NOTE | 2016-10-30 09:04 | HHI.PR ---
Subjective Remarks Patient seen and examined this morning. Patient's vitals are stable and she is afebrile. Has not yet had a BM, took laxative yesterday and milk of mag this am. Had some pain transferring to bedside commode. She denies CP or SOB. Objective Vital Signs Date Time Temp Pulse Resp B/P Pulse Ox O2 Delivery O2 Flow Rate FiO2 10/30/16 04:00 98.5 76 22 145/64 95 10/30/16 00:00 97.7 76 20 169/74 97 10/29/16 21:07 92 10/29/16 20:00 96.8 76 20 139/61 97 10/29/16 18:43 Room Air 10/29/16 16:00 97.0 69 18 185/72 98 10/29/16 12:00 97.0 68 16 110/51 98 I/O 10/29/16 10/29/16 10/29/16 10/30/16 10/30/16 10/30/16 07:00 15:00 23:00 07:00 15:00 23:00 Intake Total 888 ml 720 ml 780 ml 240 ml Output Total 200 ml 200 ml 400 ml Balance 688 ml 520 ml 380 ml 240 ml Intake Oral 240 ml 720 ml 780 ml 240 ml IV Total 648 ml Output Urine Total 200 ml 200 ml 400 ml # Voids 2 1 # Bowel Movements 0 0 Result Diagram: 10/29/16 0543 10/29/16 0543 Imaging Last Impressions Hip and Pelvis X-Ray 10/28/16 0000 Signed Impressions: Service Date/Time: September 18:20 - CONCLUSION: 1. Status post left hip replacement with prosthesis in good position. 2. Degenerative changes involving the lower lumbar spine and right hip joint. Taiwo Brown MD Chest X-Ray 10/27/16 0000 Signed Impressions: Service Date/Time: Thursday, October 27, 2016 22:44 - CONCLUSION: 1. Minimal left basilar streakiness consistent with atelectasis and/or mild infiltrate. Clinical correlation is recommended. 2. Degenerative changes throughout the thoracic spine. Taiwo Brown MD Objective Remarks GENERAL: sitting in chair comfortable, nad SKIN: Warm and dry. HEAD: Normocephalic. EYES: No scleral icterus. No injection or drainage. NECK: Supple, trachea midline. No JVD or lymphadenopathy. CARDIOVASCULAR: Regular rate and rhythm without murmurs, gallops, or rubs. RESPIRATORY: Breath sounds equal bilaterally. No accessory muscle use. GASTROINTESTINAL: Abdomen soft, non-tender, nondistended. MUSCULOSKELETAL: No cyanosis, or edema. Left lower extremity in knee immobilizer. A/P Assessment and Plan 86 y/o female with a history of HTN and neuropathy presented to the ED with worsening left hip pain. Xray at Dr. Barrow office shows a fracture through femoral neck with superior displacement of proximal femur. Hip fracture, left -s/p LEFT hip bipolar hemiarthroplasty on 10/29 -per ortho, weightbearing status: WBAT, dressing change: Change daily, by RN starting postop day 2. posterior hip precautions. Knee immobilizer on at all times except when walking. Abduction pillow while in bed. Encourage at least 3 times a day OOB. -Follow-up: 2 weeks, Dr. Yee, [facility] -DC'd to [facility] today after patient has BM HTN, chronic -Cont home medications Coreg, -Monitor vitals DVT prophylaxis: lovenox Discharge Planning Discharge to SN after BM. Neeta Gonzalez MD R3 Oct 30, 2016 09:04
[2016-10-30] MEDS: CHOLECALCIFEROL (VIT D3) 1000 UNIT TAB PO SCH (09:38)
[2016-10-30] MEDS: CARVEDILOL 12.5 MG TAB PO SCH (09:38)
[2016-10-30] MEDS: GABAPENTIN 300 MG CAP PO SCH (09:38)
[2016-10-30] MEDS: DOCUSATE SODIUM 100 MG CAP PO SCH (09:38)
[2016-10-30] MEDS: SODIUM CHLORIDE 0.9% FLUSH 10 ML FLUSH IV FLUSH SCH (09:39)
[2016-10-30] MEDS: oxyCODONE/ACETAMINOPHEN 5 MG/325 MG TAB PO PRN ×2 (09:39→16:49)
[2016-10-30] MEDS: MAGNESIUM HYDROXIDE SUSP 30 ML CUP PO PRN (09:43)
[2016-10-30 10:42] VITALS: O2SAT 95
[2016-10-30 12:00] VITALS: BP 98/47; PULSE 69; RESP 16; TEMP 96.8; O2SAT 95
--- NOTE | 2016-10-30 12:06 | PD.ORT.PN ---
Subjective Post Op Day #: 2 Subjective Remarks The patient is resting in bed in NAD. Mild to moderate soreness. Objective Vitals Vital Signs Date Time Temp Pulse Resp B/P Pulse Ox O2 Delivery O2 Flow Rate FiO2 10/30/16 10:42 95 21 10/30/16 08:00 96.3 72 16 126/60 97 10/30/16 04:00 98.5 76 22 145/64 95 10/30/16 00:00 97.7 76 20 169/74 97 10/29/16 21:07 92 10/29/16 20:00 96.8 76 20 139/61 97 10/29/16 18:43 Room Air 10/29/16 16:00 97.0 69 18 185/72 98 I/O 10/29/16 10/29/16 10/29/16 10/30/16 10/30/16 10/30/16 07:00 15:00 23:00 07:00 15:00 23:00 Intake Total 888 ml 720 ml 780 ml 240 ml Output Total 200 ml 200 ml 400 ml Balance 688 ml 520 ml 380 ml 240 ml Intake Oral 240 ml 720 ml 780 ml 240 ml IV Total 648 ml Output Urine Total 200 ml 200 ml 400 ml # Voids 2 1 # Bowel Movements 0 0 Result Diagram: 10/29/1643 10/29/16 0543 Objective Remarks Alert awake and oriented -3. No acute distress. Pulmonary: Normal respiratory effort. LEFT lower extremity: abduction pillow and knee immobilizer in place. Neurovascularly intact, +EHL/FHL, dressing clean, dry and intact. + PT/DP pulses. Supple compartments. Negative Homans sign. Assessment & Plan Ortho Post Op Day #: 2 Problem List: Assessment and Plan POD # 2- LEFT hip bipolar hemiarthroplasty Doing well, expected postop pain, no complaints. DVT prophylaxis, Lovenox Weightbearing status: WBAT Dressing change: Change daily. posterior hip precautions. Knee immobilizer on at all times except when walking. Abduction pillow while in bed. PT/OT: Encourage at least 3 times a day OOB. Dispo:patient expressed interest in going to inpatient rehabilitation Follow-up: 2 weeks, Dr. Yee, [facility] Justin Treadwell Oct 30, 2016 12:06
[2016-10-30 16:01] VITALS: BP 118/58; PULSE 67; RESP 16; TEMP 97.3; O2SAT 99
== END 2016-10-30 17:39 | DRG 470 ==
LOC: NEPE 17:10 → NEDA 10-28 00:33 → NEPFCDU 10-28 05:29 → N06B 10-28 14:15 → N06A 10-28 18:58
PROVIDERS: ADMIT Family Medicine; ATTEND Family Medicine
PROC: 0SRS0JA Replacement of Left Hip Joint, Femoral Surface with Synthetic Substitute, Uncemented, Open Approach (ICD-10-PCS; principal; 2016-10-28 14:54)
DX: S72.002A Fracture of unspecified part of neck of left femur, initial encounter for closed fracture (principal); M87.9 Osteonecrosis, unspecified; E11.9 Type 2 diabetes mellitus without complications; I48.91 Unspecified atrial fibrillation; G62.9 Polyneuropathy, unspecified; J98.11 Atelectasis; I10 Essential (primary) hypertension; E78.00 Pure hypercholesterolemia, unspecified; K58.9 Irritable bowel syndrome, unspecified; M81.0 Age-related osteoporosis without current pathological fracture; X58.XXXA Exposure to other specified factors, initial encounter; Y92.9 Unspecified place or not applicable
CPT/HCPCS: 71010; 73502; 80048; 80053; 85025; 85610; 85730; 86850; 86900; 86901; 86920; 93005; 94150; 96374; 96375; C1776; J0690; J1580; J1650; J1885; J2270; J2405; J3010; J3370; J7050; L0200; L0484